=== PATIENT | male | born 1965 | race Caucasian/White ===

== ENCOUNTER 2023-09-09 23:37 | Inpatient (IN) | payer MEDICARE ==
[~2023-09-09] VITALS: Ht 177.8 cm; Wt 122.0 kg
[2023-09-10 00:51] LABS: BASOPHILS # (AUTO) 0.2 X10'3 (0-0.2); BASOPHILS % (AUTO) 1.5 % (0-1); EOSINOPHILS # (AUTO) 0.1 X10'3 (0-0.9); HEMATOCRIT 41.7 % (42.0-52.0); HEMOGLOBIN 14.3 g/dl (14.0-17.9); LYMPHOCYTES # (AUTO) 0.9 X10'3 (1.1-4.8); MEAN CORPUSCULAR HEMOGLOBIN 32.2 PG (27.0-31.0); MEAN CORPUSCULAR HGB CONC 34.3 g/dL (33.0-36.5); MEAN CORPUSCULAR VOLUME 93.8 FL (78-98); MEAN PLATELET VOLUME 7.6 FL (7.4-10.4); MONOCYTES # (AUTO) 1.1 X10'3 (0-0.9); MONOCYTES % (AUTO) 10.1 % (2-12); NEUTROPHILS # (AUTO) 8.2 X10'3 (1.8-7.7); NEUTROPHILS % (AUTO) 78.4 % (42-75); PLATELET COUNT 115 X10'3 (140-440); RED BLOOD COUNT 4.44 X10'6 (4.70-6.10); RED CELL DISTRIBUTION WIDTH 14.7 % (11.5-14.5); WHITE BLOOD COUNT 10.4 X10'3 (4.5-11.0)
[2023-09-10 01:05] LABS: ALANINE AMINOTRANSFERASE 32 U/L (12-78); ALBUMIN 2.3 G/DL (3.4-5.0); ALBUMIN/GLOBULIN RATIO 0.5 (1.1-1.5); ALKALINE PHOSPHATASE 189 IU/L (46-116); ANION GAP 6 (8-16); ASPARTATE AMINO TRANSFERASE 40 U/L (10-37); BLOOD UREA NITROGEN 13 MG/DL (7-18); BUN/CREATININE RATIO 11.1 (10.0-20.0); CALCIUM 7.9 MG/DL (8.5-10.1); CHLORIDE 100 MMOL/L (99-107); CREATININE 1.17 MG/DL (0.60-1.10); GLUCOSE 348 MG/DL (70-104); MAGNESIUM 1.8 MG/DL (1.5-2.4); POTASSIUM 3.7 MMOL/L (3.5-5.1); SODIUM 138 MMOL/L (135-145); TOTAL CARBON DIOXIDE 31.6 MMOL/L (24-32); TOTAL PROTEIN 6.7 G/DL (6.4-8.2); eCRCL 70 ML/MIN; eGFR 64 ML/MIN
[2023-09-10] MEDS: piperacillin/tazo 4.5gm/100ml 100 ML IV STA (01:51)
[2023-09-10] MEDS: vancomycin/NS 1 GM ADD-VANTAGE 250 ML IV ONE ×2 (01:51→03:28)
[2023-09-10] MEDS ORDERED: mag hydrox/Alum hydrox/simeth 30ml oral suspension PO PRN (02:25)
[2023-09-10] MEDS ORDERED: ondansetron/PF 4mg/2ml inj IV PRN (02:25)
[2023-09-10] MEDS ORDERED: potassium Cl 20 mEq SR tablet PO PRN (02:25)
[2023-09-10] MEDS ORDERED: magnesium Cl slow-release 64mg tablet PO PRN (02:25)
[2023-09-10] MEDS ORDERED: magnesium 2GM in 50ml NS 50 ML IV PRN (02:25)
[2023-09-10] MEDS ORDERED: magnesium 4gm in 100ml NS 100 ML IV PRN (02:25)
[2023-09-10] MEDS ORDERED: potassium Cl 40MEQ/1/2NS 520ml 520 ML IV PRN (02:25)
[2023-09-10] MEDS ORDERED: acetaminophen 325mg tablet PO PRN (02:25)
[2023-09-10] MEDS ORDERED: DEXTROSE 15 GM of carb/4 tabs (each vial/BOTTLE has 4 tablets) PO PRN ×4 (02:30→14:05)
[2023-09-10] MEDS: MESSAGE TO PHARMACY PO ONE ×2 (02:30→14:05)
[2023-09-10] MEDS ORDERED: glucagon, human recombinant 1mg kit SUBCUT PRN ×2 (02:30→14:05)
[2023-09-10] MEDS ORDERED: heparin 10,000 units/1 ML INJ IV PRN (02:30)
[2023-09-10] MEDS ORDERED: dextrose 50%-water 50ml dispensing syringe IV PRN ×4 (02:30→14:05)
[2023-09-10] MEDS ORDERED: insulin Lispro (HumaLOG) vial - multi-dose SQ SCH (02:30)
[2023-09-10] MEDS: normal saline 1000ml 1,000 ML IV SCH (03:05)
[2023-09-10] MEDS: heparin 10,000 units/1 ML INJ IV ONE (03:17)
[2023-09-10] MEDS: INSULIN LISPRO 100 UNIT/ML INSULN.PEN MULTI-DOSE SQ SCH (03:23)
[2023-09-10] MEDS: heparin 25,000 UNIT/250ml bag 250 ML IV PRN (03:31)
[2023-09-10 03:32] LABS: INR 1.4 INR; PROTHROMBIN TIME 14.5 SECONDS (9.0-12.0)
[2023-09-10 04:01] LABS: BILIRUBIN,URINE NEGATIVE (Neg); CLARITY,URINE CLEAR (Clear); COLOR,URINE YELLOW (Yellow); GLUCOSE, URINE >=1000 mg/dl (Neg); KETONES,URINE NEGATIVE (Neg); LEUKOCYTE ESTERASE ,URINE NEGATIVE (Neg); NITRITES, URINE NEGATIVE (Neg); OCCULT BLOOD,URINE TRACE-INTACT (Neg); PROTEIN,URINE NEGATIVE (Neg); UROBILINOGEN,URINE 0.2 E.U/dL (0.2-1.0)
[2023-09-10 04:06] LABS: UA COLLECTION TYPE CLN CATCH MIDSTREAM
[2023-09-10 04:17] LABS: BACTERIA,URINE FEW /HPF (Neg); SQUAMOUS EPITHELIAL CELL,UR FEW /LPF (FEW); YEAST MODERATE /HPF (NEGATIVE)
[2023-09-10 05:11] LABS: INR 1.6 INR; PROTHROMBIN TIME 16.8 SECONDS (9.0-12.0)
[2023-09-10 05:59] LABS: APTT > 139 SECONDS (22-32)
[2023-09-10] MEDS: K and/or MAG REPLACEMENT MC SCH (08:00)
[2023-09-10] MEDS: docusate sod 100mg capsule PO SCH (08:00)
[2023-09-10] MEDS: piperacillin/tazo 3.375gm/50ml 50 ML IV SCH (08:09)
[2023-09-10 09:09] LABS: CHOLESTEROL 123 MG/DL (0-200); HDL CHOLESTEROL 41 MG/DL (35-60); POTASSIUM 3.1 MMOL/L (3.5-5.1); TRIGLYCERIDES 49 MG/DL (20-135)
[2023-09-10 09:20] LABS: LDL CHOLESTEROL 58 MG/DL (50-100)
[2023-09-10 10:38] VITALS: BP 138/81; PULSE 86; RESP 16; TEMP 98.1; O2SAT 98
[2023-09-10] MEDS: potassium Cl 20 mEq SR tablet PO PRN (11:28)
[2023-09-10] MEDS ORDERED: VANCOmycin 1250MG/NS 250ml Bag 250 ML IV SCH ×2 (13:00→15:00)
[2023-09-10] MEDS: furosemide 40mg/4ml inj IV ONE (13:31)
[2023-09-10] MEDS: rivaroxaban 15mg tablet PO SCH (13:35)
[2023-09-10 13:40] VITALS: BP 135/87; PULSE 74; RESP 20; O2SAT 95
[2023-09-10 17:40] VITALS: BP 142/76; PULSE 82; RESP 16; TEMP 98.2; O2SAT 97
[2023-09-10 20:00] VITALS: RESP 20; O2SAT 97
[2023-09-10] MEDS: furosemide 40mg/4ml inj IV SCH (20:45)
[2023-09-10] MEDS ORDERED: insulin glargine (Lantus) pen - multi-dose SQ SCH (21:00)
[2023-09-10] MEDS: insulin glargine (Lantus) pen - multi-dose SQ SCH (21:00)
[2023-09-10 22:00] VITALS: BP 124/79; PULSE 84; RESP 18; TEMP 97.8; O2SAT 97
[2023-09-11] VITALS (7 sets, daily range): BP systolic 126–131; BP diastolic 71–82; PULSE 81–88; RESP 15–20; TEMP 97.2–97.9; O2SAT 95–98
[2023-09-11 05:50] LABS: ALBUMIN 1.7 G/DL (3.4-5.0); ANION GAP 6 (8-16); BLOOD UREA NITROGEN 16 MG/DL (7-18); BUN/CREATININE RATIO 16.7 (10.0-20.0); CALCIUM 7.8 MG/DL (8.5-10.1); CHLORIDE 103 MMOL/L (99-107); CREATININE 0.96 MG/DL (0.60-1.10); GLUCOSE 205 MG/DL (70-104); SODIUM 139 MMOL/L (135-145); TOTAL CARBON DIOXIDE 30.2 MMOL/L (24-32); eCRCL 86 ML/MIN; eGFR 80 ML/MIN
[2023-09-11 05:53] LABS: POTASSIUM 3.7 MMOL/L (3.5-5.1)
[2023-09-11 06:12] LABS: BASOPHILS # (AUTO) 0.1 X10'3 (0-0.2); BASOPHILS % (AUTO) 1.4 % (0-1); EOSINOPHILS # (AUTO) 0.3 X10'3 (0-0.9); EOSINOPHILS % (AUTO) 5.1 % (0-6); HEMATOCRIT 37.1 % (42.0-52.0); HEMOGLOBIN 12.7 g/dl (14.0-17.9); LYMPHOCYTES # (AUTO) 1.2 X10'3 (1.1-4.8); LYMPHOCYTES % (AUTO) 17.6 % (21-51); MEAN CORPUSCULAR HEMOGLOBIN 31.8 PG (27.0-31.0); MEAN CORPUSCULAR HGB CONC 34.1 g/dL (33.0-36.5); MEAN CORPUSCULAR VOLUME 93.3 FL (78-98); MEAN PLATELET VOLUME 7.6 FL (7.4-10.4); NEUTROPHILS # (AUTO) 4.2 X10'3 (1.8-7.7); NEUTROPHILS % (AUTO) 61.9 % (42-75); PLATELET COUNT 104 X10'3 (140-440); RED BLOOD COUNT 3.97 X10'6 (4.70-6.10); RED CELL DISTRIBUTION WIDTH 14.8 % (11.5-14.5); WHITE BLOOD COUNT 6.8 X10'3 (4.5-11.0)
[2023-09-11] MEDS: magnesium hydroxide 30ml (MOM) UD suspension PO PRN (13:22)
[2023-09-11] MEDS ORDERED: VANCOMYCIN LEVEL IJ ONE (14:30)
[2023-09-12] VITALS (8 sets, daily range): BP systolic 99–137; BP diastolic 65–85; PULSE 80–94; RESP 12–18; TEMP 97.8–98.7; O2SAT 95–98
[2023-09-12 05:45] LABS: ALBUMIN 1.6 G/DL (3.4-5.0); ANION GAP 4 (8-16); BLOOD UREA NITROGEN 15 MG/DL (7-18); BUN/CREATININE RATIO 16.1 (10.0-20.0); CALCIUM 7.7 MG/DL (8.5-10.1); CHLORIDE 101 MMOL/L (99-107); CREATININE 0.93 MG/DL (0.60-1.10); GLUCOSE 151 MG/DL (70-104); POTASSIUM 3.5 MMOL/L (3.5-5.1); SODIUM 134 MMOL/L (135-145); TOTAL CARBON DIOXIDE 29.5 MMOL/L (24-32); eCRCL 88 ML/MIN; eGFR 83 ML/MIN
[2023-09-12 08:30] LABS: BASOPHILS # (AUTO) 0.1 X10'3 (0-0.2); BASOPHILS % (AUTO) 1.8 % (0-1); EOSINOPHILS # (AUTO) 0.4 X10'3 (0-0.9); EOSINOPHILS % (AUTO) 7.4 % (0-6); HEMATOCRIT 36.1 % (42.0-52.0); HEMOGLOBIN 12.2 g/dl (14.0-17.9); LYMPHOCYTES # (AUTO) 1.4 X10'3 (1.1-4.8); LYMPHOCYTES % (AUTO) 25.4 % (21-51); MEAN CORPUSCULAR HEMOGLOBIN 31.6 PG (27.0-31.0); MEAN CORPUSCULAR HGB CONC 33.8 g/dL (33.0-36.5); MEAN CORPUSCULAR VOLUME 93.4 FL (78-98); MEAN PLATELET VOLUME 7.3 FL (7.4-10.4); MONOCYTES # (AUTO) 0.8 X10'3 (0-0.9); MONOCYTES % (AUTO) 13.9 % (2-12); NEUTROPHILS # (AUTO) 2.8 X10'3 (1.8-7.7); NEUTROPHILS % (AUTO) 51.5 % (42-75); PLATELET COUNT 130 X10'3 (140-440); RED BLOOD COUNT 3.86 X10'6 (4.70-6.10); RED CELL DISTRIBUTION WIDTH 14.6 % (11.5-14.5); WHITE BLOOD COUNT 5.5 X10'3 (4.5-11.0)
[2023-09-12] MEDS: insulin Lispro (HumaLOG) vial - multi-dose SQ SCH (09:50)
[2023-09-12] MEDS: furosemide 40mg/4ml inj IV SCH (20:21)
[2023-09-13 02:00] VITALS: BP 109/76; PULSE 88; RESP 18; TEMP 98; O2SAT 95
[2023-09-13 06:21] LABS: ALBUMIN 1.5 G/DL (3.4-5.0); ANION GAP 5 (8-16); BLOOD UREA NITROGEN 18 MG/DL (7-18); BUN/CREATININE RATIO 19.8 (10.0-20.0); CALCIUM 7.5 MG/DL (8.5-10.1); CHLORIDE 101 MMOL/L (99-107); CREATININE 0.91 MG/DL (0.60-1.10); GLUCOSE 215 MG/DL (70-104); POTASSIUM 3.4 MMOL/L (3.5-5.1); SODIUM 136 MMOL/L (135-145); TOTAL CARBON DIOXIDE 29.8 MMOL/L (24-32); eCRCL 90 ML/MIN; eGFR 85 ML/MIN
[2023-09-13] MEDS ORDERED: magnesium 4gm in 100ml NS 100 ML IV PRN (06:30)
[2023-09-13] MEDS ORDERED: magnesium 2GM in 50ml NS 50 ML IV PRN (06:30)
[2023-09-13] MEDS ORDERED: magnesium Cl slow-release 64mg tablet PO PRN (06:30)
[2023-09-13] MEDS ORDERED: potassium Cl 20 mEq SR tablet PO PRN (06:30)
[2023-09-13] MEDS ORDERED: potassium Cl 40MEQ/1/2NS 520ml 520 ML IV PRN (06:30)
[2023-09-13 06:34] LABS: BASOPHILS # (AUTO) 0.1 X10'3 (0-0.2); BASOPHILS % (AUTO) 1.5 % (0-1); EOSINOPHILS # (AUTO) 0.3 X10'3 (0-0.9); EOSINOPHILS % (AUTO) 5.1 % (0-6); HEMATOCRIT 34.5 % (42.0-52.0); HEMOGLOBIN 11.9 g/dl (14.0-17.9); LYMPHOCYTES # (AUTO) 1.4 X10'3 (1.1-4.8); LYMPHOCYTES % (AUTO) 25.1 % (21-51); MEAN CORPUSCULAR HGB CONC 34.4 g/dL (33.0-36.5); MEAN CORPUSCULAR VOLUME 93.1 FL (78-98); MEAN PLATELET VOLUME 7.2 FL (7.4-10.4); MONOCYTES # (AUTO) 0.8 X10'3 (0-0.9); MONOCYTES % (AUTO) 15.3 % (2-12); NEUTROPHILS # (AUTO) 2.9 X10'3 (1.8-7.7); PLATELET COUNT 122 X10'3 (140-440); RED BLOOD COUNT 3.71 X10'6 (4.70-6.10); RED CELL DISTRIBUTION WIDTH 14.6 % (11.5-14.5); WHITE BLOOD COUNT 5.5 X10'3 (4.5-11.0)
[2023-09-13] MEDS: potassium Cl 20 mEq SR tablet PO PRN (07:10)
[2023-09-13 07:18] VITALS: BP 120/66; PULSE 89; RESP 18; TEMP 98; O2SAT 98
[2023-09-13] MEDS: K and/or MAG REPLACEMENT MC SCH (08:00)
[2023-09-13 08:15] VITALS: RESP 18; O2SAT 98
[2023-09-13 08:19] LABS: MAGNESIUM 1.6 MG/DL (1.5-2.4)
[2023-09-13 08:44] LABS: TOTAL CELLS COUNTED 100
[2023-09-13 08:45] LABS: PLATELET ESTIMATE DECREASED
[2023-09-13 11:48] VITALS: BP 103/67; PULSE 85; RESP 15; TEMP 98; O2SAT 97
[2023-09-13 16:40] VITALS: BP 110/65; PULSE 85; RESP 16; TEMP 98.4; O2SAT 97
== END 2023-09-13 16:55 | DRG 299 ==
LOC: ER 23:38 → ED HOLD 09-10 02:26 → PCU 3S 09-10 17:50
PROVIDERS: ADMIT Surgery; ATTEND Internal Medicine
DX: I82.411 Acute embolism and thrombosis of right femoral vein (principal); I50.33 Acute on chronic diastolic (congestive) heart failure; N17.0 Acute kidney failure with tubular necrosis; L03.115 Cellulitis of right lower limb; I48.91 Unspecified atrial fibrillation; R74.8 Abnormal levels of other serum enzymes; I48.0 Paroxysmal atrial fibrillation; D69.6 Thrombocytopenia, unspecified; I82.511 Chronic embolism and thrombosis of right femoral vein; J45.909 Unspecified asthma, uncomplicated; E11.42 Type 2 diabetes mellitus with diabetic polyneuropathy; T45.516A Underdosing of anticoagulants, initial encounter; Y92.89 Other specified places as the place of occurrence of the external cause; Z79.01 Long term (current) use of anticoagulants; Z89.421 Acquired absence of other right toe(s)
CPT/HCPCS: 36415; 71045; 73560; 73590; 80048; 80053; 80061; 80202; 81001; 82948; 83036; 83605; 83735; 83880; 84132; 84145; 85007; 85025; 85610; 85730; 87040; 87088; 93005; 93306; 93971; 97116; 97161; 97530; 99285; A6212; A6213; A6223; A6250; G0378; J1644; J1815; J1940; J2543; J3370; J7030